=== PATIENT | male | born 1950 | race Hispanic/Latino ===

== ENCOUNTER 2016-12-26 06:42 | Day surgery (SDC) | payer MEDICARE ==
[2016-12-18 11:47] VITALS: BMI 27.8
[2016-12-26] MEDS ORDERED: Propofol 10 mg/ml Inj (20 ML) ONE ×2 (08:08→08:29)
[2016-12-26] MEDS ORDERED: Lactated Ringer's 1,000 ML IV SCH (08:45)
[2016-12-26 08:55] VITALS: RESP 19
[2016-12-26 09:32] VITALS: BP 141/77; PULSE 83; TEMP 97.5; O2SAT 97
== END 2016-12-26 10:17 | disposition home or self-care (01) ==
LOC: ENDO 06:42
PROVIDERS: ATTEND Specialist
DX: K22.70 Barrett's esophagus without dysplasia (principal); K44.9 Diaphragmatic hernia without obstruction or gangrene; J44.9 Chronic obstructive pulmonary disease, unspecified; I10 Essential (primary) hypertension
CPT/HCPCS: 43239; 88305; 88312; J2001; J2704; J3010; J7040; J7120

== ENCOUNTER 2018-09-24 10:45 | Inpatient (IN) | payer MEDICARE ==
[2018-09-22 11:03] VITALS: BMI 29.1
[2018-09-24 12:28] LABS: BASO # 0.02 K/mm3 (0.0-2.0); BASO % 0.2 % (0.0-3.0); EOS % 0.4 % (1.5-5.0); HEMOGLOBIN 11.5 g/dL (14.0-18.0); LYMPH # 1.2 (1.2-3.4); LYMPH % 11.5 % (22.0-35.0); MEAN CORPUSCULAR HEMOGLOBIN 28.7 pg (25.0-35.0); MEAN CORPUSCULAR HGB CONC 34.1 g/dl (31.0-37.0); MEAN PLATELET VOLUME 7.4 fl (7.0-11.0); MONO # 0.9 (0.1-0.6); MONO % 8.9 % (1.0-6.0); RBC 4.01 10^6/uL (3.5-6.1); RED CELL DISTRIBUTION WIDTH 13.2 % (11.5-14.5)
[2018-09-24 12:37] LABS: INR 1.04; PROTHROMBIN TIME 11.7 SECONDS (9.4-12.5)
[2018-09-24 12:41] LABS: BLOOD UREA NITROGEN 15 mg/dL (7-21); CALCIUM 9.6 mg/dL (8.4-10.5); GFR NON-AFRICAN AMERICAN > 60
[2018-09-24] MEDS ORDERED: Lidocaine 1% Inj (20ml) ONE ×2 (13:44→17:42)
[2018-09-24] MEDS ORDERED: Midazolam 2 MG/2 ML VIAL ONE (13:45)
[2018-09-24] MEDS ORDERED: Midazolam 2 MG/2 ML VIAL IVP ONE (13:58)
[2018-09-24] MEDS ORDERED: Oxycodone/Acetaminophen 5/325 mg Tab PO PRN ×2 (14:19→18:24)
[2018-09-24] MEDS ORDERED: Sodium Chloride 0.45% 1,000 ML IV SCH (14:30)
--- NOTE | 2018-09-24 15:54 | RAD ---
Date of service: 09/24/2018 HISTORY: rt lung bx COMPARISON: No prior. FINDINGS: LUNGS: There is a moderate size right pneumothorax. The edge of the lung is 2.6 cm from the chest wall at the right lung base. There is no mediastinal shift. Dr. Luna was notified at 3:49 p.m. PLEURA: As above CARDIOVASCULAR: No aortic atherosclerotic calcification present. Normal cardiac size. No pulmonary vascular congestion. OSSEOUS STRUCTURES: No significant abnormalities. VISUALIZED UPPER ABDOMEN: Normal. OTHER FINDINGS: None. IMPRESSION: Moderate size right pneumothorax.
[2018-09-24 19:04] VITALS: RESP 18
--- NOTE | 2018-09-24 19:08 | CT ---
PROCEDURE: CT guided right upper lobe lung biopsy. HISTORY: Smoker. Large stellate right upper lobe mass. Evaluate for malignancy PHYSICIAN(S): Bobo Luna MD. TECHNIQUE: The relative risks and indications of the procedure were explained to the patient and his and consent obtained. The patient was placed supine on the CT scanner and preliminary images through the upper lungs obtained. Conscious sedation and monitoring were provided throughout the procedure by a nurse. There is a stellate 4.5 cm noncalcified mass in the right upper lobe medially.. A right anterior approach was selected and the area prepped and draped in the usual sterile fashion. 1% Xylocaine was used to anesthetize the skin and soft tissues. A 19 gauge guiding needle was advanced into the 4.5 cm right upper lobe lung mass. Its position was confirmed with CT. Using coaxial technique, multiple core biopsies were obtained. The postprocedure images show no evidence of significant pneumothorax and a small amount of hemorrhage.. IMPRESSION: 1. CT-guided right upper lobe lung biopsy as described above.
--- NOTE | 2018-09-24 19:10 | CT ---
PROCEDURE: CT-guided right pigtail chest tube placement HISTORY: Status post right upper lobe CT-guided biopsy. Enlarging pneumothorax with shortness of breath. Needs chest tube PHYSICIAN(S): Bobo Luna MD. TECHNIQUE: The relative risks and indications for the procedure were explained to the patient and his and informed consent obtained. The patient was placed in a supine position on the CT scanner and preliminary images through the upper lungs obtained. This revealed a moderate to large right pneumothorax. An anterior approach was selected the area prepped and draped usual sterile fashion. Conscious sedation monitoring were provided throughout the procedure by a nurse. A 19 gauge needle was advanced into the right pleural cavity anteriorly and air aspirated. A 0.035 guidewire was coiled in the right pleural cavity. Sequential dilatation was performed subsequent placement of a 10 [place] pigtail chest tube. The tube was retracted against the anterior chest wall. The tube was secured and placed to 20 cm H2O suction. The pneumothorax was resolved. IMPRESSION: 1. CT-guided right pigtail chest tube placement as described above
[2018-09-24] MEDS ORDERED: Albuterol 0.5% Inhal Sol (2.5 mg/0.5 ml) UD IH PRN (20:00)
--- NOTE | 2018-09-24 22:20 | CP.PCM.CON ---
History of Present Illness - History of Present Illness History of Present Illness: Surgery Consult Note. Dr. Edwards 68yo M with PMHx of CHF, HTN, GERD, Asthma, Bronchitis, COPD who was sent to Dr. Bobo Luna for biopsy of right lung mass. Right lung mass has been present for more than a year and has been having follow up appointments by his cabinet assembler, Dr. Trevino. Patient states that the mass was noted to get larger and was sent for a biopsy by IR. Patient obtained a right lung mass bx today which was complicated by right sided pneumothorax and a CT-guided pigtail chest tube was placed. Patient denies any chest pain or shortness of breath. No N/V/D. No Abd pain, no F/C. PMHx: CHF, HTN, GERD, Asthma, Bronchitis, COPD PSHx: Cholecystectomy Family Hx: denies Social Hx: Admits to former tobacco use. Daily ETOH use. No illicit drugs Allergy: Sulfa Review of Systems - Review of Systems All systems: reviewed and no additional remarkable complaints except - Constitutional Constitutional: absent: Chills, Fever - Cardiovascular Cardiovascular: absent: Chest Pain, Dyspnea - Respiratory Respiratory: absent: Dyspnea, Chest Congestion - Gastrointestinal Gastrointestinal: absent: Abdominal Pain, Nausea, Vomiting - Genitourinary Genitourinary: absent: Difficulty Urinating, Dysuria Past Patient History - Past Social History Smoking Status: Never Smoked - CARDIAC Hx Pacemaker: No - PULMONARY Hx Respiratory Disorders: Yes Hx Chronic Obstructive Pulmonary Disease (COPD): Yes - NEUROLOGICAL Hx Paralysis: No - HEENT Hx HEENT Problems: No - RENAL Hx Chronic Kidney Disease: No - ENDOCRINE/METABOLIC Hx Endocrine Disorders: No - HEMATOLOGICAL/ONCOLOGICAL Hx Blood Transfusions: No Hx Blood Transfusion Reaction: No - INTEGUMENTARY Hx Dermatological Problems: No - MUSCULOSKELETAL/RHEUMATOLOGICAL Hx Musculoskeletal Disorders: Yes - GASTROINTESTINAL Hx Gastrointestinal Disorders: Yes Hx Gastroesophageal Reflux: Yes - GENITOURINARY/GYNECOLOGICAL Hx Genitourinary Disorders: No - PSYCHIATRIC Hx Emotional Abuse: No Hx Physical Abuse: No Hx Substance Use: No - SURGICAL HISTORY Hx Surgeries: Yes - ANESTHESIA Hx Anesthesia Reactions: No Hx Malignant Hyperthermia: No Meds Allergies/Adverse Reactions: Allergies Allergy/AdvReac Type Severity Reaction Status Date / Time Sulfa (Sulfonamide Allergy ANAPHYLAXIS Verified 03/07/16 15:18 Antibiotics) - Medications Medications: Current Medications Acetaminophen (Tylenol 325mg Tab) 650 mg PO Q4 PRN PRN Reason: Pain, Mild (1-3) Acetaminophen (Tylenol 325mg Tab) 650 mg PO Q4H PRN PRN Reason: Pain, Mild (1-3) Albuterol Sulfate (Albuterol 0.5% Inhal Luna (2.5 Mg/0.5 Ml) Ud) 2.5 mg IH [id number] PRN PRN Reason: Shortness of Breath Amlodipine Besylate (Norvasc) 10 mg PO DAILY [facility] Chlorthalidone (Hygroton) 12.5 mg PO SuTuTh@1000 [facility] Doxazosin Mesylate (Cardura) 2 mg PO DAILY [facility] Folic Acid (Folic Acid) 1 mg PO DAILY [facility] Sodium Chloride (Sodium Chloride 0.45%) 1,000 mls @ 80 mls/hr IV .[id number] [facility] Last Admin: 09/24/18 20:59 Dose: 80 mls/hr Azilsartan Medoxomil [Edarbi] 80 Mg ( Home Med) 80 mg PO DAILY [facility] Fluticasone/Umeclidin/Vilanter [ Trelegy Ellipta 100- 62.5-25] 1 (Home Med ) 1 inh IH DAILY [facility] Ondansetron HCl (Zofran Inj) 4 mg IVP Q6H PRN PRN Reason: Nausea/Vomiting Oxycodone/Acetaminophen (Percocet 5/325 Mg Tab) 1 tab PO Q6H PRN PRN Reason: Pain, moderate (4-7) Stop: 09/27/18 18:25 Pantoprazole Sodium (Protonix Ec Tab) 40 mg PO ACB [facility] Physical Exam - Constitutional Appears: Well, Non-toxic, No Acute Distress - Head Exam Head Exam: ATRAUMATIC, NORMAL INSPECTION, NORMOCEPHALIC - Eye Exam Eye Exam: EOMI, Normal appearance. absent: Scleral icterus - ENT Exam ENT Exam: Mucous Membranes Moist, Normal Exam - Respiratory Exam Respiratory Exam: NORMAL BREATHING PATTERN. absent: Accessory Muscle Use, Respiratory Distress - Cardiovascular Exam Cardiovascular Exam: RRR. absent: JVD - GI/Abdominal Exam GI & Abdominal Exam: Soft. absent: Distended, Firm, Guarding, Rebound, Rigid, Tenderness - Rectal Exam Rectal Exam: NORMAL INSPECTION - Extremities Exam Extremities exam: Positive for: normal inspection. Negative for: calf tenderness - Neurological Exam Neurological exam: Alert, Normal Gait, Oriented x3 - Psychiatric Exam Psychiatric exam: Normal Affect, Normal Mood - Skin Skin Exam: Dry, Intact, Normal Color, Warm Results - Vital Signs Recent Vital Signs: Last Vital Signs Temp 98.4 F 09/24/18 19:04 Pulse 101 H 09/24/18 19:04 Resp 18 09/24/18 19:04 BP 128/66 09/24/18 19:04 Pulse Ox 100 09/24/18 19:04 - Labs Result Diagrams: 09/24/18 12:20 09/24/18 12:20 Labs: Laboratory Results - last 24 hr 09/24/18 09/24/18 09/24/18 12:20 12:20 12:20 WBC 10.0 RBC 4.01 Hgb 11.5 L Hct 33.7 L MCV 84.0 MCH 28.7 MCHC 34.1 RDW 13.2 Plt Count 300 MPV 7.4 Neut % (Auto) 79.0 H Lymph % (Auto) 11.5 L [place] % (Auto) 8.9 H Eos % (Auto) 0.4 L Baso % (Auto) 0.2 Lymph # (Auto) 1.2 [place] # (Auto) 0.9 H Eos # (Auto) 0.0 Baso # (Auto) 0.02 Absolute Neuts (auto) 7.89 H PT 11.7 INR 1.04 APTT 38.0 Sodium 128 L Potassium 4.5 Chloride 92 L Carbon Dioxide 25 Anion Gap 16 BUN 15 Creatinine 0.9 Est GFR ( Amer) > 60 Est GFR (Non-Af Amer) > 60 Random Glucose 98 Calcium 9.6 Assessment & Plan - Assessment and Plan (Free Text) Assessment: 68yo M with right lung mass biopsy on 09/24. Right lung pneumo s/p right pigtail. Surgery consulted to manage chest tube. Plan: - f/u AM chest XR - Continue Chest tube to suction - further chest tube management recs pending AM chest XR and clinical status Further recs as per Dr. Jerry Smith PGY2 surgery
[2018-09-25] MEDS ORDERED: Pantoprazole 40 mg EC Tab PO SCH (07:30)
--- NOTE | 2018-09-25 09:05 | CP.PCM.PN ---
Subjective - Date & Time of Evaluation Date of Evaluation: 09/25/18 Time of Evaluation: 09:02 - Subjective Subjective: Surgery Progress Note for Dr. Edwards S/E at bedside. Offers no acute complaints. Denies sob at rest. Denies fevers, chills, chest pain, sob, n/v, constipation or diarrhea, and dysuria. Objective - Vital Signs/Intake and Output Vital Signs (last 24 hours): Temp Pulse Resp BP Pulse Ox 98.4 F 101 H 18 128/66 100 09/24/18 19:04 09/24/18 19:04 09/24/18 19:04 09/24/18 19:04 09/24/18 19:04 Intake and Output: 09/25/18 09/25/18 06:59 18:59 Intake Total 960 Output Total 300 Balance 660 - Medications Medications: Current Medications Acetaminophen (Tylenol 325mg Tab) 650 mg PO Q4 PRN PRN Reason: Pain, Mild (1-3) Acetaminophen (Tylenol 325mg Tab) 650 mg PO Q4H PRN PRN Reason: Pain, Mild (1-3) Albuterol Sulfate (Albuterol 0.5% Inhal Luna (2.5 Mg/0.5 Ml) Ud) 2.5 mg IH [id number] PRN PRN Reason: Shortness of Breath Amlodipine Besylate (Norvasc) 10 mg PO DAILY [facility] Chlorthalidone (Hygroton) 12.5 mg PO SuTuTh@1000 [facility] Doxazosin Mesylate (Cardura) 2 mg PO DAILY [facility] Folic Acid (Folic Acid) 1 mg PO DAILY [facility] Sodium Chloride (Sodium Chloride 0.45%) 1,000 mls @ 80 mls/hr IV .[id number] [facility] Last Admin: 09/24/18 20:59 Dose: 80 mls/hr Azilsartan Medoxomil [Edarbi] 80 Mg ( Home Med) 80 mg PO DAILY [facility] Fluticasone/Umeclidin/Vilanter [ Trelegy Ellipta 100- 62.5-25] 1 (Home Med ) 1 inh IH DAILY [facility] Ondansetron HCl (Zofran Inj) 4 mg IVP Q6H PRN PRN Reason: Nausea/Vomiting Oxycodone/Acetaminophen (Percocet 5/325 Mg Tab) 1 tab PO Q6H PRN PRN Reason: Pain, moderate (4-7) Stop: 09/27/18 18:25 Pantoprazole Sodium (Protonix Ec Tab) 40 mg PO ACB [facility] Last Admin: 09/25/18 08:56 Dose: 40 mg - Labs Labs: 09/24/18 12:20 09/24/18 12:20 PT 11.7 SECONDS (9.4-12.5) 09/24/18 12:20 INR 1.04 09/24/18 12:20 APTT 38.0 Seconds (26.9-38.3) 09/24/18 12:20 - Additional Findings Additional findings: - Constitutional Appears: Well, Non-toxic, No Acute Distress - Head Exam Head Exam: ATRAUMATIC, NORMAL INSPECTION, NORMOCEPHALIC - Eye Exam Eye Exam: EOMI, Normal appearance. absent: Scleral icterus - ENT Exam ENT Exam: Mucous Membranes Moist, Normal Exam - Respiratory Exam Respiratory Exam: NORMAL BREATHING PATTERN. absent: Accessory Muscle Use, Respiratory Distress - Cardiovascular Exam Cardiovascular Exam: RRR. absent: JVD - GI/Abdominal Exam GI & Abdominal Exam: Soft. absent: Distended, Firm, Guarding, Rebound, Rigid, Tenderness - Rectal Exam Rectal Exam: NORMAL INSPECTION - Extremities Exam Extremities exam: Positive for: normal inspection. Negative for: calf tenderness - Neurological Exam Neurological exam: Alert, Normal Gait, Oriented x3 - Psychiatric Exam Psychiatric exam: Normal Affect, Normal Mood - Skin Skin Exam: Dry, Intact, Normal Color, Warm Assessment and Plan - Assessment and Plan (Free Text) Assessment: 68yo M with right lung mass biopsy on 09/24. Right lung pneumo s/p right pigtail. Surgery consulted to manage chest tube. Plan: Repeat CXR shows resolution of moderate pneumothorax on prior imaging Pending discussion with Dr. Luna for possible Chest tube removal Further recs as per Dr. Edwards PGY-1 Tete Gupta
[2018-09-25 09:12] VITALS: O2SAT 98
--- NOTE | 2018-09-25 09:54 | RAD ---
Date of service: 09/25/2018 HISTORY: fu rt PTX COMPARISON: 09/24/2018 FINDINGS: LUNGS: No active pulmonary disease. PLEURA: There is a pigtail catheter chest tube in the right lung apex with re-expansion of the right lung. CARDIOVASCULAR: No aortic atherosclerotic calcification present. Normal cardiac size. No pulmonary vascular congestion. OSSEOUS STRUCTURES: No significant abnormalities. VISUALIZED UPPER ABDOMEN: Normal. OTHER FINDINGS: None. IMPRESSION: There is a pigtail catheter chest tube in the right lung apex with re-expansion of the right lung.
[2018-09-25] MEDS ORDERED: FLUTICASONE IH SCH (10:00)
[2018-09-25] MEDS ORDERED: AZILSARTAN MEDOXOMIL 80 MG PO SCH (10:00)
[2018-09-25] MEDS ORDERED: UMECLIDIN IH SCH (10:00)
[2018-09-25] MEDS ORDERED: VILANTER IH SCH (10:00)
--- NOTE | 2018-09-25 16:05 | RAD ---
Date of service: 09/25/2018 HISTORY: s/p chest tube seal COMPARISON: 09/25/2018 FINDINGS: LUNGS: Redemonstration of mild interstitial changes. PLEURA: Right chest tube in place. No evidence of pneumothorax. CARDIOVASCULAR: No aortic atherosclerotic calcification present. Normal cardiac size. No pulmonary vascular congestion. OSSEOUS STRUCTURES: No significant abnormalities. VISUALIZED UPPER ABDOMEN: Normal. OTHER FINDINGS: None. IMPRESSION: Right chest tube in place. No evidence of pneumothorax.
[2018-09-25 17:52] VITALS: BP 114/67; PULSE 82; TEMP 97.4
--- NOTE | 2018-09-25 20:46 | HP ---
DATE OF EXAM: 09/25/2018 HISTORY OF PRESENT ILLNESS: The patient is a 68-year-old known to me from previous admission. The patient has a right lung mass speculated, so the patient came to same day surgery for biopsy, developed shortness of breath, had small pneumothorax, underwent chest tube placement, seen and examined, and seems to be comfortable. PAST MEDICAL HISTORY: Significant for: 1. COPD. 2. Hypertension. 3. History of congestive heart failure. 4. Peptic ulcer disease. 5. History of anxiety disorder. ALLERGIES: ALLERGIC TO SULFONAMIDE. MEDICATIONS AT HOME: He is on Cardura 2 mg daily, omeprazole 40 mg daily, and amlodipine 10 mg daily. He is on Advair, B12, vitamin D and Edarbi. SOCIAL HISTORY: He used to be smoker, quit few years ago, still socially drinks wine. PHYSICAL EXAMINATION: GENERAL: He is comfortable, sitting in chair, chest tube in the right upper chest area. VITAL SIGNS: He is afebrile, pulse 84, respirations 20, and blood pressure 140/76. LUNGS: Bilateral fair airflow. No rhonchi or crackle. HEART: S1 and S2 audible. ABDOMEN: Soft and nontender. No rebound. No guarding. NEUROLOGICAL: The patient is awake and alert, able to communicate. LABORATORY DATA: WBC is 10, hemoglobin 11.5, hematocrit 33.7, and platelet 300. PT 11.7 and INR 1.04. Chemistry; sodium 128, potassium 4.5, chloride 92, CO2 of 25, BUN 15, creatinine 0.9, and blood sugar 198. ASSESSMENT: 1. Right upper lung mass, status post CT-guided biopsy, status post pneumothorax, status post chest tube placement with almost complete resolution. 2. Chronic obstructive pulmonary disease. 3. Hypertension. 4. Hyperlipidemia. PLAN: The patient will be evaluated by Dr. Bobo Luna and once the chest tube is removed, we will make discharge plan. Josh Quigley MD
== END 2018-09-25 20:48 | disposition home or self-care (01) | DRG 201 ==
LOC: SDS 10:45 → 3RSO 19:32
PROVIDERS: ADMIT Internal Medicine; ATTEND Internal Medicine
PROC: 0W9930Z Drainage of Right Pleural Cavity with Drainage Device, Percutaneous Approach (ICD-10-PCS; 2018-09-24)
PROC: 0BBC3ZX Excision of Right Upper Lung Lobe, Percutaneous Approach, Diagnostic (ICD-10-PCS; principal; 2018-09-24 13:00)
DX: J95.811 Postprocedural pneumothorax (principal); I11.0 Hypertensive heart disease with heart failure; I50.9 Heart failure, unspecified; J44.9 Chronic obstructive pulmonary disease, unspecified; K21.9 Gastro-esophageal reflux disease without esophagitis; E78.5 Hyperlipidemia, unspecified; Y84.8 Other medical procedures as the cause of abnormal reaction of the patient, or of later complication, without mention of misadventure at the time of the procedure; Z87.891 Personal history of nicotine dependence